=== PATIENT | male | born 1995 | race Caucasian/White ===

== ENCOUNTER 2024-02-03 07:00 | Emergency (ER) | payer MEDICAID ==
[~2024-02-03] VITALS: Ht 170.2 cm; Wt 87.0 kg
[2024-02-03 07:07] VITALS: BP 124/88; PULSE 72; RESP 18; TEMP 98.4; O2SAT 100
== END 2024-02-03 07:45 | disposition home or self-care (01) ==
LOC: ER 07:42
DX: S90.822A Blister (nonthermal), left foot, initial encounter (principal); X58.XXXA Exposure to other specified factors, initial encounter; Y93.9 Activity, unspecified; Y92.89 Other specified places as the place of occurrence of the external cause; Y99.8 Other external cause status
CPT/HCPCS: 99283